=== PATIENT | male | born 1945 | race Caucasian/White ===

== ENCOUNTER 2020-07-03 08:34 | Emergency (ER) | payer OTHER ==
[~2020-07-03] VITALS: Ht 185.4 cm; Wt 90.9 kg
[2020-07-03 08:37] VITALS: Ht 185.4 cm; Wt 90.9 kg
[2020-07-03] MEDS ORDERED: ASPIRIN325 MG PO (08:41)
[2020-07-03] MEDS ORDERED: HEART PILL (08:41)
[2020-07-03] MEDS ORDERED: BLOOD THINNER (08:41)
[2020-07-03] MEDS ORDERED: PROSTATE PILL (08:42)
[2020-07-03] MEDS ORDERED: CHOLESTEROL PILL (08:42)
[2020-07-03] MEDS ORDERED: VITAMIN (08:42)
[2020-07-03 09:40] VITALS: BP 118/73
== END 2020-07-03 09:41 | disposition home or self-care (01) ==
LOC: D.ER 08:34
DX: S63.501A Unspecified sprain of right wrist, initial encounter (principal); W19.XXXA Unspecified fall, initial encounter; Y93.9 Activity, unspecified; Y92.9 Unspecified place or not applicable